=== PATIENT | female | born 1960 ===

== ENCOUNTER → 2017-12-12 | Outpatient (CLI) | payer OTHER ==
[~2017-12-12] MED LIST: ADVAIR 2501 DISK W/1 IH; BETAMETHASONE D15 G2 TP; CATAPRES0.1 MG; CATAPRES0.1 MG PO; CATAPRES0.3 M1; CIPRO500 MG; CLARITIN10 M1 PO; CORTISPORIN EAR10 M1 OT; COZAAR50 MG; COZAAR50 MG PO; DECADRON 4 MG IM; FLEXERIL10 MG PO; FLUCONAZOLE150 MG PO; IMODIUM2 MG; KEFLEX 500 MG; LEVAQUIN750 MG PO; LEVSIN0.125 MG; MEDROL4 MG PO; MEDROLPACK PO; METROGEL55 GM TP; NORFLEX 100 MG PO; NORFLEX 60 MG IM; ORPH100T PO; PROAIR HFA8.5 GM IH; PROVENTIL3 ML/2.5 M IH; SEPTRA DS TABLE1 TAB PO; SINGULAIR 10MG10 MG PO; TESSALON PERLE100 MG PO; TORADOL60 MG IM; TUSNEL LIQUID3840 ML PO; TUSSIONEX PENNKI5 ML PO; VASOFLEX FORTE1 CAP PO; VASOTEC10 MG PO; VOLTAREM 50 MG PO; VOLTAREM 75 MG PO; ZYRTEC10 MG PO
== END | disposition home or self-care (01) ==
LOC: PPHC 15:27
DX: M54.5 Low back pain (principal)

== ENCOUNTER 2017-12-24 12:36 | Outpatient (CLI) | payer OTHER | END 2017-12-24 12:54 | disposition home or self-care (01) | LOC: MAMO-SONO 12:36 | DX: N64.4 Mastodynia (principal); Z12.31 Encounter for screening mammogram for malignant neoplasm of breast ==

== ENCOUNTER 2017-12-25 07:16 | Outpatient (CLI) | payer OTHER | END 2017-12-25 07:19 | disposition home or self-care (01) | LOC: NUCLEAR 07:16 | DX: M79.606 Pain in leg, unspecified (principal); R60.0 Localized edema ==

== ENCOUNTER 2021-08-14 05:49 | Day surgery (SDC) | payer OTHER ==
[~2021-08-14 05:49] MED LIST changes: +DAFLONEX-XL 11300 MG; +FLEXERIL; +ZIPSOR25 MG
[2021-08-14] MEDS ORDERED: IBU600 MG PO (08:48)
== END 2021-08-14 14:45 | disposition home or self-care (01) ==
LOC: CIR.AMB 05:49
PROVIDERS: ATTEND Obstetrics & Gynecology Gynecology
DX: N84.0 Polyp of corpus uteri (principal); Z20.822 Contact with and (suspected) exposure to COVID-19

== ENCOUNTER 2022-02-08 10:19 | Emergency (ER) | payer OTHER ==
[~2022-02-08] VITALS: Ht 170.2 cm; Wt 112.5 kg
[~2022-02-08 10:19] MED LIST changes: +IBU600 MG PO
[2022-02-08] MEDS ORDERED: COZAAR100 MG PO (10:46)
[2022-02-08] MEDS ORDERED: FUROSEMIDE20 MG PO (10:46)
[2022-02-08] MEDS ORDERED: DAFLONEX-XL 11300 MG PO (10:48)
[2022-02-08] MEDS ORDERED: XARELTO15 MG PO (10:48)
[2022-02-08] MEDS ORDERED: AMOX-CLAV 875-1 EACH PO (13:49)
== END 2022-02-08 14:11 | disposition home or self-care (01) ==
LOC: ER 10:19
DX: M79.604 Pain in right leg (principal); I83.891 Varicose veins of right lower extremity with other complications; I87.2 Venous insufficiency (chronic) (peripheral); R60.0 Localized edema

== ENCOUNTER 2023-03-31 10:38 | Emergency (ER) | payer OTHER ==
[~2023-03-31] VITALS: Ht 170.2 cm; Wt 108.4 kg
[~2023-03-31 10:38] MED LIST changes: +AMOX-CLAV 875-1 EACH PO; +COZAAR100 MG PO; +DAFLONEX-XL 11300 MG PO; +FUROSEMIDE20 MG PO; +XARELTO15 MG PO
[2023-03-31] MEDS ORDERED: HYDRALAZINE HCL50 MG PO (10:51)
[2023-03-31] MEDS ORDERED: SYMBICORT 16010.2 GM IH (10:51)
== END 2023-03-31 13:39 | disposition home or self-care (01) ==
LOC: ER 10:38
DX: U07.1 COVID-19 (principal)